=== PATIENT | female | born 2000 | race Caucasian/White ===

== ENCOUNTER 2018-12-17 13:58 | Day surgery (SDC) | payer BC ==
[~2018-12-17 13:58] MED LIST: BUPIVAC MPF-EPI 0.5%-1:200000 30 ML VIAL. ONE; DEXAMETHASONE SOD PHOS 4 MG/ML VIAL ONE; HYDROmorphone 2 MG/ML VIAL IV PRN; IV RINGERS,LACTATED 1000ML 1,000 ML IV SCH; KETOROLAC 30 MG/ML INJ FOR OR. INJ ONE; LIDOCAINE 1% PF 2 ML VIAL. ID PRN; LIDOCAINE 2% PF 5 ML VIAL. ONE; ONDANSETRON PF 4 MG/2 ML VIAL. IV PRN; PROCHLORPERAZINE 10 MG/2 ML VIAL. IV PRN; PROPOFOL 20 ML IV ONE; fentaNYL PF VIAL 100 MCG/2 ML VIAL IV PRN
[2018-12-17] MEDS ORDERED: fentaNYL PF VIAL 100 MCG/2 ML VIAL ONE ×2 (14:35→17:43)
[2018-12-17] MEDS ORDERED: MIDAZOLAM HCL/PF 2 MG/2 ML VIAL. ONE (15:34)
[2018-12-17] MEDS ORDERED: HYDR-3165 PO (16:13)
--- NOTE | 2018-12-17 16:19 | DISCH ---
DISCHARGE INSTRUCTIONS Condition on Discharge Condition on Discharge: Stable Activity After Discharge Activity Instructions for Disc: Other, see below (elevate and ice when not up walking) Weight Bearing Status after Di: Non weight bearing (maintain nonweightbearing with either crutches or knee scooter walker) Diet after Discharge Diet after Discharge: Regular Wound Incision Care Wound/Incision Care: Do not change dressing Contacting the after DC Call your doctor for: Concerns you may have Follow-Up Follow up with: Dr. Miller 1 week Treatment/Equipment after DC Adaptive Equipment Issued: LUZ MARINA Au MD Dec 17, 2018 16:19
[2018-12-17] MEDS ORDERED: SEVOFLURANE 31 TO 60 MINUTES. IH ONE (17:11)
--- NOTE | 2018-12-17 17:40 | PDOC4 ---
Operative Note Operative Note Date of surgery: 12/17/2018 Preoperative diagnosis: Displaced medial malleolus fracture right ankle Postoperative diagnosis: Same Operative procedure: ORIF right medial malleolus fracture Surgeon: Angela Anesthesia: Gen. Estimated blood loss: 20 mL Complications: None Operative indications: Patient is a 18-year-old female that injured her ankle about 5 days ago playing softball was initially seen in the emergency department and was told it was lined up well. She presented for orthopedic follow-up today and she does have displacement of the medial malleolus fracture I had described the concern with that due to instability and poor healing capability due to the ligament attachment and mechanics of the ankle. We covered the possibility of operative fixation and the possibility of infection nonhealing nerve or blood vessel damage medical or other anesthetic consultations among others she wishes to proceed with surgical evaluation and treatment. Operative text: Patient was identified procedure verified patient placed in the supine position on the operating table. After adequate amounts of general anesthesia were administered the right lower extremity was prepped and draped in standard sterile fashion with a thigh tourniquet. After timeout was performed patient she do identified and verified leg was exsanguinated by elevation tourniquet inflated to 250 motion mercury and a curvilinear incision was made over the medial malleolus subperiosteal dissection carried out fracture site was anatomically reduced and a total of 2 cannulated screws were placed under fluoroscopic guidance over guidewires and excellent reduction was noted under multiple fluoroscopic views with anatomic reduction of the ankle joint mortise. Thorough irrigation carried out normal saline solution subcutaneous closure with buried Vicryl suture subcuticular closure with 4-0 Monocryl Steri-Strips and Mastisol were placed followed by sterile dressings and then a well-padded posterior splint. Toes were noted be warm pink find deflation of tourniquet patient was returned to recovery room in stable condition having tolerated procedure well LUZ MARINA MONROE MD Dec 17, 2018 17:40
[2018-12-17] MEDS: fentaNYL PF VIAL 100 MCG/2 ML VIAL IV PRN ×2 (17:46→18:02)
[2018-12-17] MEDS: MORPHINE SULFATE 2 MG/ML VIAL. IV PRN ×2 (18:04→18:45)
[2018-12-17] MEDS ORDERED: HYDROcodone/APAP 7.5/325MG 1 TAB TABLET ONE (18:38)
[2018-12-17] MEDS ORDERED: HYDROcodone/APAP 7.5/325MG 1 TAB TABLET PO ONE (19:00)
[2018-12-17 19:30] VITALS: BP 115/66
== END 2018-12-17 20:00 | disposition home or self-care (01) ==
LOC: SURG 13:58
PROVIDERS: ATTEND Orthopaedic Surgery
DX: S82.51XA Displaced fracture of medial malleolus of right tibia, initial encounter for closed fracture (principal); X58.XXXA Exposure to other specified factors, initial encounter; Y93.89 Activity, other specified; Y92.89 Other specified places as the place of occurrence of the external cause; Y99.8 Other external cause status; Z79.899 Other long term (current) drug therapy
CPT/HCPCS: 27766; 36415; 76000; 84702; A7015; C1713; J0690; J0780; J1100; J1885; J2001; J2250; J2270; J2405; J2704; J3010; J3490